=== PATIENT | female | born 1980 | race Caucasian/White ===

== ENCOUNTER → 2016-12-15 | Outpatient (CLI) | payer OTHER ==
[~2016-12-15] MED LIST: AMOXICILLIN500 MG PO; AMOXICOT500 MG PO; ANAPROX DS550 MG PO; AUGMENTIN 875 M1 TAB PO; BIRTH CONTROL1 EAC1 PO; CIPRO500 MG PO; CLARITIN-D 12 H1 TAB PO; CLARITIN10 MG PO; CLEOCIN HCL300 MG PO; CLEOCIN150 MG PO; CLINDAMYCIN HC300 MG PO; COMBIVENT1 ARO IH; CYCLOBENZAPRINE10 MG PO; FLAGYL500 MG PO; FLONASE 0.05% 121 EA NAS; HYDROCODONE BIT1 T11 PO; IRON FERROUS S325 MG PO; KEFLEX500 MG PO; LIDEX0.05% T; MACROBID100 M1 PO; MEDROL DOSEPAK4 MG PO; MOBIC15 MG PO; MOTRIN800 MG; MOTRIN800 MG PO; NAPROSYN500 MG PO; NORCO 325 MG-51 TAB PO; PEN-VK500 MG PO; PENICILLIN VK500 MG PO; PERIDEX 480 ML480 ML PO; PREDNISONE10 MG PO; PRILOSEC20 MG PO; ROBITUSSIN AC 110 ML PO; TESSALON PERLE100 M1 PO; TRAMADOL HCL50 MG PO; TRIMOX500 MG PO; ULTRAM50 MG PO; ZITHROMAX Z PA250 MG PO; ZOFRAN ODT4 MG SL; ZYRTEC10 M1 PO
== END | disposition home or self-care (01) ==
LOC: US 01:35
DX: N94.6 Dysmenorrhea, unspecified (principal); N94.10 Unspecified dyspareunia

== ENCOUNTER 2017-07-23 08:45 | Emergency (ER) | payer OTHER ==
[~2017-07-23] VITALS: Ht 167.6 cm; Wt 88.5 kg
[2017-07-23 08:55] VITALS: BP 134/70
== END 2017-07-23 10:01 | disposition home or self-care (01) ==
LOC: ED 08:45
DX: J06.9 Acute upper respiratory infection, unspecified (principal); Z88.2 Allergy status to sulfonamides

== ENCOUNTER 2017-08-26 11:14 | Emergency (ER) | payer OTHER ==
[~2017-08-26] VITALS: Ht 167.6 cm; Wt 88.5 kg
[2017-08-26 11:17] VITALS: BP 112/76
[2017-08-26 12:03] LABS: BASO # 0.1 10*3/uL (0.0-0.1); BASO % 0.9 % (0.0-1.0); EOS # 0.2 10*3/uL (0.0-0.4); EOS % 3.7 % (1.0-4.0); HEMATOCRIT 39.1 % (37.0-47.0); HEMOGLOBIN 13.2 g/dl (12.0-16.0); LYMPH # 2.2 10*3/uL (1.3-4.4); LYMPH % 33.4 % (27.0-41.0); MEAN CELL VOLUME 95.8 fl (81.0-99.0); MEAN CORPUSCULAR HGB 32.4 pg (27.0-31.0); MEAN CORPUSCULAR HGB CONC 33.8 g/dl (33.0-37.0); MONO # 0.5 10*3/uL (0.1-1.0); MONO % 7.1 % (3.0-9.0); NEUT # 3.5 10*3/uL (2.3-7.9); NEUT % 54.6 % (47.0-73.0); PLATELET COUNT AUTOMATED 178 10*3/uL (130-400); RED BLOOD COUNT 4.08 10*6/uL (4.10-5.10); RED CELL DISTRI WIDTH 12.5 % (0-14.5); WHITE BLOOD COUNT 6.5 10*3/uL (4.8-10.8)
[2017-08-26 12:18] LABS: ALBUMIN 3.9 gm/dl (3.1-4.5); ALKALINE PHOSPHATASE 49 U/L (45-117); BUN 12 mg/dl (7-24); CHLORIDE 106 mmol/L (98-107); CREATININE 0.67 mg/dL (0.55-1.02); POTASSIUM 3.5 mmol/L (3.5-5.1); SGOT/AST 14 IU/L (3-35); SGPT/ALT 25 U/L (12-78); SODIUM 141 mmol/L (136-145); TOTAL PROTEIN 7.6 gm/dL (6.4-8.2)
[2017-08-26] MEDS ORDERED: AUGMENTIN 875875 MG PO (13:14)
== END 2017-08-26 14:07 | disposition home or self-care (01) ==
LOC: ED 11:14
PROVIDERS: Internal Medicine
DX: J32.0 Chronic maxillary sinusitis (principal); Z88.2 Allergy status to sulfonamides

== ENCOUNTER 2017-12-24 08:39 | Emergency (ER) | payer OTHER ==
[~2017-12-24] VITALS: Wt 89.4 kg
[~2017-12-24 08:39] MED LIST changes: +AUGMENTIN 875875 MG PO
[2017-12-24] MEDS ORDERED: NAPROSYN500 MG PO (09:21)
[2017-12-24] MEDS ORDERED: MEDROL DOSEPAK4 MG PO (09:21)
[2017-12-24] MEDS ORDERED: CYCLOBENZAPRINE10 MG PO (09:21)
[2017-12-24 09:30] VITALS: BP 118/62
== END 2017-12-24 09:45 | disposition home or self-care (01) ==
LOC: ED 08:39
DX: S39.012A Strain of muscle, fascia and tendon of lower back, initial encounter (principal); Z79.899 Other long term (current) drug therapy; Z88.2 Allergy status to sulfonamides; X50.1XXA Overexertion from prolonged static or awkward postures, initial encounter; Y93.89 Activity, other specified; Y92.89 Other specified places as the place of occurrence of the external cause; Y99.9 Unspecified external cause status

== ENCOUNTER 2018-03-10 09:33 | Emergency (ER) | payer OTHER ==
[~2018-03-10] VITALS: Ht 167.6 cm; Wt 89.8 kg
[2018-03-10 09:33] VITALS: BP 129/79
[2018-03-10] MEDS ORDERED: MEDROL DOSEPAK4 MG PO (12:54)
[2018-03-10] MEDS ORDERED: CYCLOBENZAPRINE10 MG PO (12:54)
[2018-03-10] MEDS ORDERED: NAPROSYN500 MG PO (12:54)
== END 2018-03-10 12:32 | disposition left against medical advice (07) ==
LOC: ED 09:33
DX: S39.012A Strain of muscle, fascia and tendon of lower back, initial encounter (principal); Z88.2 Allergy status to sulfonamides; X58.XXXA Exposure to other specified factors, initial encounter; Y93.89 Activity, other specified; Y92.89 Other specified places as the place of occurrence of the external cause; Y99.8 Other external cause status

== ENCOUNTER 2018-06-17 11:17 | Emergency (ER) | payer OTHER ==
[~2018-06-17] VITALS: Ht 167.6 cm; Wt 97.5 kg
[2018-06-17 11:19] VITALS: BP 114/89
[2018-06-17] MEDS ORDERED: Zofran4 MG SL (11:53)
[2018-06-17] MEDS ORDERED: FLONASE ALLERG9.9 ML NAS (11:53)
[2018-06-17] MEDS ORDERED: PREDNISONE20 M1 PO (11:53)
[2018-06-17] MEDS ORDERED: ZYRTEC-D TABLE1 EACH PO (11:53)
== END 2018-06-17 12:03 | disposition home or self-care (01) ==
LOC: ED 11:17
DX: J01.80 Other acute sinusitis (principal); H65.93 Unspecified nonsuppurative otitis media, bilateral; J02.9 Acute pharyngitis, unspecified; R11.0 Nausea; Z88.2 Allergy status to sulfonamides

== ENCOUNTER 2018-11-08 10:30 | Emergency (ER) | payer OTHER ==
[~2018-11-08 10:30] MED LIST changes: +FLONASE ALLERG9.9 ML NAS; +PREDNISONE20 M1 PO; +ZYRTEC-D TABLE1 EACH PO; +Zofran4 MG SL
[2018-11-08 10:33] VITALS: BP 110/78
[2018-11-08] MEDS ORDERED: NAPROSYN500 MG PO (10:47)
[2018-11-08] MEDS ORDERED: CHLORZOXAZONE500 M2 PO (10:47)
== END 2018-11-08 10:57 | disposition home or self-care (01) ==
LOC: ED 10:30
DX: M54.41 Lumbago with sciatica, right side (principal); Z88.2 Allergy status to sulfonamides; Z79.899 Other long term (current) drug therapy; Z90.49 Acquired absence of other specified parts of digestive tract

== ENCOUNTER 2019-10-08 10:36 | Emergency (ER) | payer OTHER ==
[~2019-10-08] VITALS: Ht 167.6 cm; Wt 88.9 kg
[~2019-10-08 10:36] MED LIST changes: +CHLORZOXAZONE500 M2 PO
[2019-10-08 10:44] VITALS: BP 151/102
[2019-10-08] MEDS ORDERED: PROCTOFOAM15 GM R (12:12)
[2019-10-08] MEDS ORDERED: Motrin,Rufen800 MG PO (12:12)
== END 2019-10-08 12:25 | disposition home or self-care (01) ==
LOC: ED 10:36
DX: K64.5 Perianal venous thrombosis (principal)

== ENCOUNTER 2020-07-14 13:03 | Emergency (ER) | payer OTHER ==
[~2020-07-14] VITALS: Ht 167.6 cm; Wt 99.8 kg
[~2020-07-14 13:03] MED LIST changes: +Motrin,Rufen800 MG PO; +PROCTOFOAM15 GM R
[2020-07-14 13:08] VITALS: BP 147/101
[2020-07-14] MEDS ORDERED: IBU800 MG PO (13:36)
[2020-07-14] MEDS ORDERED: PENICILLIN VK500 MG PO (13:36)
== END 2020-07-14 14:00 | disposition home or self-care (01) ==
LOC: ED 13:03
DX: K04.7 Periapical abscess without sinus (principal); K08.89 Other specified disorders of teeth and supporting structures; T14.8XXA Other injury of unspecified body region, initial encounter; Z79.899 Other long term (current) drug therapy; X58.XXXA Exposure to other specified factors, initial encounter; Y93.89 Activity, other specified; Y92.89 Other specified places as the place of occurrence of the external cause; Y99.8 Other external cause status

== ENCOUNTER 2020-07-23 09:00 | Emergency (ER) | payer OTHER ==
[~2020-07-23 09:00] MED LIST changes: +IBU800 MG PO
[2020-07-23 09:08] VITALS: BP 123/76
[2020-07-23] MEDS ORDERED: CLINDAMYCIN HC300 MG PO (10:09)
[2020-07-23] MEDS ORDERED: NAPROSYN500 MG PO (10:09)
== END 2020-07-23 10:45 | disposition home or self-care (01) ==
LOC: ED 09:00
DX: K08.89 Other specified disorders of teeth and supporting structures (principal); Z88.2 Allergy status to sulfonamides

== ENCOUNTER 2021-03-25 12:31 | Emergency (ER) | payer OTHER ==
[~2021-03-25] VITALS: Ht 167.6 cm; Wt 122.5 kg
[2021-03-25 13:51] LABS: BASO % 0.6 % (0.0-1.0); EOS # 0.4 10*3/uL (0.0-0.4); EOS % 5.3 % (1.0-4.0); HEMATOCRIT 37.4 % (37.0-47.0); LYMPH % 29.1 % (27.0-41.0); MEAN CELL VOLUME 94.4 fl (81.0-99.0); MEAN CORPUSCULAR HGB 31.3 pg (27.0-31.0); MEAN CORPUSCULAR HGB CONC 33.2 g/dl (33.0-37.0); MEAN PLATELET VOLUME 11.8 fl (9.6-12.3); MONO # 0.5 10*3/uL (0.1-1.0); MONO % 6.6 % (3.0-9.0); NEUT % 58.1 % (47.0-73.0); PLATELET COUNT AUTOMATED 186 10*3/uL (130-400); RED BLOOD COUNT 3.96 10*6/uL (4.10-5.10); RED CELL DISTRI WIDTH 13.2 % (0-14.5); WHITE BLOOD COUNT 6.8 10*3/uL (4.8-10.8)
[2021-03-25 14:09] LABS: ALBUMIN 2.9 gm/dl (3.1-4.5); ALKALINE PHOSPHATASE 43 U/L (45-117); BUN 11 mg/dl (7-24); CHLORIDE 111 mmol/L (98-107); CREATININE 0.53 mg/dL (0.55-1.02); POTASSIUM 3.6 mmol/L (3.5-5.1); SGOT/AST 18 IU/L (3-35); SGPT/ALT 27 U/L (12-78); SODIUM 141 mmol/L (136-145); TOTAL PROTEIN 6.8 gm/dL (6.4-8.2)
[2021-03-25 14:10] LABS: TROPONIN I < 0.015 ng/ml (<0.045)
[2021-03-25 16:57] VITALS: BP 128/78
== END 2021-03-25 19:10 | disposition home or self-care (01) ==
LOC: ED 12:31
PROVIDERS: Emergency Medicine
DX: R07.89 Other chest pain (principal); R00.2 Palpitations; R06.2 Wheezing; F17.200 Nicotine dependence, unspecified, uncomplicated; Z88.2 Allergy status to sulfonamides; Z79.899 Other long term (current) drug therapy; Z79.2 Long term (current) use of antibiotics; Z98.890 Other specified postprocedural states

== ENCOUNTER 2021-03-25 20:08 | Emergency (ER) | payer OTHER ==
[~2021-03-25] VITALS: Wt 117.9 kg
[2021-03-25 20:13] VITALS: BP 141/93
== END 2021-03-25 22:05 | disposition home or self-care (01) ==
LOC: ED 20:08
DX: T80.89XA Other complications following infusion, transfusion and therapeutic injection, initial encounter (principal); Z88.2 Allergy status to sulfonamides; Z98.890 Other specified postprocedural states; Y84.8 Other medical procedures as the cause of abnormal reaction of the patient, or of later complication, without mention of misadventure at the time of the procedure; Y92.89 Other specified places as the place of occurrence of the external cause

== ENCOUNTER 2021-07-07 09:07 | Emergency (ER) | payer OTHER | END 2021-07-07 10:05 | disposition left against medical advice (07) | LOC: ED 09:07 | DX: R11.10 Vomiting, unspecified (principal); R19.7 Diarrhea, unspecified; Z53.21 Procedure and treatment not carried out due to patient leaving prior to being seen by health care provider ==

== ENCOUNTER 2021-07-07 21:26 | Emergency (ER) | payer OTHER | END 2021-07-07 22:30 | disposition left against medical advice (07) | LOC: ED 21:26 | DX: Z53.21 Procedure and treatment not carried out due to patient leaving prior to being seen by health care provider (principal) ==

== ENCOUNTER 2021-12-09 08:33 | Emergency (ER) | payer OTHER ==
[~2021-12-09] VITALS: Ht 167.6 cm; Wt 122.5 kg
[2021-12-09 08:39] VITALS: BP 141/100
[2021-12-09] MEDS ORDERED: CLEOCIN HCL150 MG PO (08:56)
[2021-12-09] MEDS ORDERED: NAPROXEN500 M1 PO (08:56)
== END 2021-12-09 08:59 | disposition home or self-care (01) ==
LOC: ED 08:33
DX: K08.89 Other specified disorders of teeth and supporting structures (principal); Z88.1 Allergy status to other antibiotic agents; Z79.899 Other long term (current) drug therapy

== ENCOUNTER → 2023-12-11 | Outpatient (CLI) | payer OTHER ==
[~2023-12-11] MED LIST changes: +CLEOCIN HCL150 MG PO; +NAPROXEN500 M1 PO
== END | disposition home or self-care (01) ==
LOC: US 12:09
PROVIDERS: ATTEND Nurse Practitioner Women's Health
DX: D25.9 Leiomyoma of uterus, unspecified (principal); R14.0 Abdominal distension (gaseous)

== ENCOUNTER 2024-02-01 09:56 | Emergency (ER) | payer OTHER ==
[~2024-02-01] VITALS: Ht 167.6 cm; Wt 111.1 kg
[2024-02-01 10:00] VITALS: BP 144/86
[2024-02-01] MEDS ORDERED: AMOX-CLAV 875-1 EACH PO (10:07)
[2024-02-01] MEDS ORDERED: CLINDAMYCIN HC300 MG PO (10:09)
== END 2024-02-01 10:16 | disposition home or self-care (01) ==
LOC: ED 09:56
DX: K04.7 Periapical abscess without sinus (principal); K02.9 Dental caries, unspecified; Z88.2 Allergy status to sulfonamides; Z88.8 Allergy status to other drugs, medicaments and biological substances; Z98.890 Other specified postprocedural states; Z90.49 Acquired absence of other specified parts of digestive tract; F17.200 Nicotine dependence, unspecified, uncomplicated

== ENCOUNTER 2024-02-01 19:20 | Emergency (ER) | payer OTHER ==
[~2024-02-01] VITALS: Ht 167.6 cm; Wt 111.1 kg
[~2024-02-01 19:20] MED LIST changes: +AMOX-CLAV 875-1 EACH PO
[2024-02-01 19:32] VITALS: BP 152/94
[2024-02-01] MEDS ORDERED: Ketorolac Tromethamine 30 MG/ML VIAL IM ONE (19:40)
[2024-02-01] MEDS ORDERED: Acetaminophen/Hydrocodone 5 MG/325 MG TABLET PO ONE (19:40)
== END 2024-02-01 19:54 | disposition home or self-care (01) ==
LOC: ED 19:20
DX: K08.89 Other specified disorders of teeth and supporting structures (principal); Z88.2 Allergy status to sulfonamides; Z88.8 Allergy status to other drugs, medicaments and biological substances; Z90.49 Acquired absence of other specified parts of digestive tract

== ENCOUNTER 2025-04-09 10:25 | Emergency (ER) | payer OTHER ==
[~2025-04-09] VITALS: Ht 167.6 cm; Wt 101.2 kg
[2025-04-09 10:37] VITALS: BP 154/82
[2025-04-09] MEDS ORDERED: MELOXICAM15 MG PO (11:08)
[2025-04-09] MEDS ORDERED: CLINDAMYCIN HCL 300 MG CAPSULE PO ONE (11:10)
== END 2025-04-09 11:25 | disposition home or self-care (01) ==
LOC: ED 10:25
DX: K04.7 Periapical abscess without sinus (principal); K02.9 Dental caries, unspecified; Z88.2 Allergy status to sulfonamides; Z88.8 Allergy status to other drugs, medicaments and biological substances; Z79.899 Other long term (current) drug therapy